=== PATIENT | male | born 1965 | race Two or more races ===

== ENCOUNTER 2017-11-06 07:16 | Day surgery (SDC) | payer OTHER ==
[~2017-11-06] VITALS: Ht 167.6 cm; Wt 79.0 kg
[2017-11-06 08:06] VITALS: BP 153/96
[2017-11-06] MEDS ORDERED: LISI-170 PO (08:11)
[2017-11-06] MEDS ORDERED: AMLO5TAB7 PO (08:11)
[2017-11-06] MEDS ORDERED: LEVO88TA4 PO (08:11)
[2017-11-06] MEDS ORDERED: HYDR25TA6 PO (08:11)
[2017-11-06] MEDS ORDERED: NALOXONE 1 MG/ML, 2ML ONE (08:16)
[2017-11-06] MEDS ORDERED: FLUMAZENIL 0.1 MG/1 ML, 5ML ONE (08:16)
[2017-11-06] MEDS ORDERED: MIDAZOLAM 1 MG/ML, 5ML ONE (08:16)
[2017-11-06] MEDS ORDERED: FENTANYL PF 100 MCG/2ML ONE (08:16)
[2017-11-06] MEDS ORDERED: LIDOCAINE-MPF 2%, 2ML ONE (08:17)
== END 2017-11-06 12:55 | disposition home or self-care (01) ==
LOC: OUT 07:16
PROVIDERS: ATTEND Family Medicine Adult Medicine
DX: J98.4 Other disorders of lung (principal); I10 Essential (primary) hypertension
CPT/HCPCS: 32405; 71045; 77012; 88305; 99156; 99157; J2250; J3010; J3490; J2310